=== PATIENT | male | born 1970 | race Caucasian/White ===

== ENCOUNTER 2019-11-25 20:48 | Inpatient (IN) ==
[2019-11-25] MEDS ORDERED: M.V.I.-12 10 ML, FOLIC ACID 1 MG, MAGNESIUM SULFATE 1 GM, THIAMINE 100 MG in NS 1,000 ML IV ONE (21:17)
[2019-11-25] MEDS ORDERED: ATIVAN IV ONE ×3 (21:17→23:34)
[2019-11-25] MEDS ORDERED: HUMULIN R (PARKWAY) IV ONE (21:25)
[2019-11-25] MEDS ORDERED: NS 1,000 ML IV ONE ×3 (21:27→22:59)
[2019-11-25] MEDS ORDERED: FOLIC ACID ONE (21:38)
[2019-11-25] MEDS ORDERED: M.V.I.-12 ONE (21:38)
[2019-11-25] MEDS ORDERED: THIAMINE ONE (21:38)
[2019-11-25] MEDS ORDERED: MAGNESIUM SULFATE ONE (21:38)
[2019-11-25 21:45] LABS: BE -11.7 mmoll (-3.0-3.0); BLOOD TYPE ARTERIAL; HCO3-(ACT) 15.6 mmoll (20.0-26.0); METHB 0.9 % (0.0-1.5); O2(CT) 22.3 mL/dL (15.0-23.0); O2HB 93.1 % (95.0-99.0); PCO2(98.6) 20 mmHg (35-45); PO2(98.6) 104 mmHg (60-100); SAMPLE BLOOD; SAO2 98.1 % (95.0-100.0); pH(98.6) 7.35 (7.35-7.45)
--- NOTE | 2019-11-25 21:46 | PROVIDER DOCUMENTATION ---
This chart was entered by Sammi Barrientos Scribe, acting as scribe for Narinder Pena MD. HPI-General Adult - General Chief Complaint: DKA ALERT Stated Complaint: ALCOHOL WITHDRAWAL/BLOOD SUGAR Time Seen by Provider: 11/25/19 21:17 Source: patient Allergies/Adverse Reactions: Patient Allergies Allergy/AdvReac Type Severity Reaction Status Date / Time No Known Allergies Allergy Verified 11/25/19 22:34 Home Medications: Home Medication List Medication Instructions Recorded Confirmed Last Taken Type Metformin E.r. [Glucophage Xr] 1,000 mg PO BID 11/25/19 11/25/19 Unknown History PRAVAstatin [Pravachol] 1 tab PO DIRECTED 11/25/19 11/25/19 Unknown History - History of Present Illness -Gen Adult Nature of Presenting Problems: pt is a 49 yr old male presenting with complaint of elevated blood glucose, polydypsea, and rapid pulse. pt admits he has been drinking 1/5 vodka daily for many yrs, today he has had 1 25oz 4 Cornucopia this AM and nothing since. pt also reports hx of diabetes but he does not check BGL or take insulin as he should. pt denies any chest pain,fever,productive cough, or shortness of breath Review of Systems - Adult - REVIEW OF SYSTEMS - ADULT Constitutional: reports: see HPI, fatique. denies: chills, fever Eyes: reports: no symptoms reported Ears, Nose, Mouth & Throat: reports: see HPI, other (dry mouth) Cardiovascular: denies: chest pain, syncope Respiratory: denies: cough, shortness of breath Gastrointestinal: reports: nausea. denies: abdominal pain, diarrhea, vomiting Genitourinary: reports: no symptoms reported. denies: dysuria Musculoskeletal: reports: muscle aches, muscle weakness. denies: back pain, joint pain Integumentary: reports: no symptoms reported. denies: rash Neurological: denies: dizziness/vertigo, headache/migraines, syncope Psychiatric: reports: alcohol/drug dependence Endocrine: reports: see HPI, increased thirst, polyuria Hematologic/Lymphatic: reports: no symptoms reported Allergic/Immunologic: reports: no symptoms reported All Other Systems: Reviewed and Negative Past History - Adult - PAST MEDICAL HISTORY-ADULT Review of Records: reports: Old Records Reviewed, Nursing Assessment Review, Medications Reviewed, Social history reviewed & non-contributory. Major Childhood Illnesses: reports: denies history Cardiovascular: reports: HTN, hyperlipidemia Respiratory: reports: denies history Gastrointestinal: reports: denies history Obstetrical/Gynecological: reports: denies history Genitourinary: reports: denies history Musculoskeletal: reports: denies history Neurological: reports: denies history Psychiatric: reports: other (alcohol/drug addiction) Endocrine/Immune: reports: Diabetes Other Conditions: reports: denies history - PRIOR SURGERIES/PROCEDURES Surgical/Procedure History: reports: none - PRIOR HOSPITALIZATIONS Prior Hospitalizations: reports: for similar symptoms - IMMUNIZATION STATUS Childhood Immunizations: See Nurse Assessment Flu Vaccine: See Nurse Assessment - FAMILY HISTORY Family History: reviewed, not pertinent - SOCIAL HISTORY Smoking: cigarettes Provider spent 3-5 mins advising pt. on dangers of tobacco.: Discussed manners to quit use, and f/u contacts for add'l counseling. Substance Use: alcohol Alcohol Use Frequency: every day Living Situation: alone Physical Exam-General - PHYSICAL EXAM-ADULT Initial Vital Signs Reviewed: Yes - CONSTITUTIONAL General Appearance: alert, no apparent distress - EYES Eyes: PERRL/EOMI - HEAD, EARS, NOSE, MOUTH & THROAT HENMT: normocephalic/atraumatic, other (dry mucous membranes) - NECK Neck: non-tender, full range of motion, supple - RESPIRATORY Respiratory: chest non-tender, lungs clear, no respiratory distress, no accessory muscle use - CARDIOVASCULAR Cardiovascular: normal peripheral pulses, tachycardia - GASTROINTESTINAL (ABDOMEN) Abdominal Exam: normal bowel sounds, non tender, soft - LYMPHATIC Lymphatic: no adenopathy - MUSCULOSKELETAL Back Exam: normal inspection, no CVA tenderness, no vertebral tenderness Extremity: normal range of motion, non-tender, normal gait, normal inspection - SKIN Integumentary: warm/dry, other (decreased skin turgor) - NEUROLOGIC Neurologic: grossly normal, no motor/sensory deficits - PSYCHIATRIC Psych/Mental Status: oriented x 3, anxious Progress - PLAN OF CARE/RESULTS Progress/Plan/Lab Results: Vital Signs - 8 hr 11/25/19 21:01 Temperature 98.1 F Pulse Rate 142 H Respiratory Rate 19 Blood Pressure 132/95 O2 Sat by Pulse Oximetry 97 Laboratory Results - last 24 hr 11/25/19 21:02 POC Glucose 458 H Orders Category Date Time Status NEWS Score 2-4:Order NEWS Lactate Series NOW Care 04/06/20 21:08 Active LACTATE, PLASMA [CHEM] Q3H Lab 11/25/19 21:15 Uncollected LACTATE, PLASMA [CHEM] Q3H Lab 11/26/19 00:15 Uncollected LACTATE, PLASMA [CHEM] Q3H Lab 11/26/19 03:15 Uncollected Lorazepam [Ativan] Med 11/25/19 21:17 Discontinued 2 mg IV NOW ONE Mvi [M.v.i.-12] 10 ml Med 11/25/19 21:17 Active Folic Acid 1 mg Magnesium Sulfate 1 gm Thiamine 100 mg 0.9% Sodium Chloride Inj [Ns] 1,000 ml IV NOW patient has elevated lactic acid due to underlying hypovolemia and alcoholism which causes elevated lacate. patient does not have clinical findings c/w sepsis. Result Diagrams: 11/25/19 21:25 11/25/19 21:25 - CONSULTS/PCP/HOSPITALIST Notification #1 *Consult/PCP/Hospitalist*: Dr. Ware, hospitalist Time Discussed: 22:15 Reason/Comments: no insulin drip, use sliding scale Consult Disposition: Admit Departure - Departure Date of Disposition Decision: 11/25/19 Time of Disposition Decision: 22:49 DIAGNOSIS: Alcohol abuse, Dehydration Uncontrolled diabetes mellitus Qualifiers: Diabetes mellitus type: type 2 Glycemic state: with hyperglycemia Qualified Code(s): E11.65 - Type 2 diabetes mellitus with hyperglycemia Disposition: ADMITTED INPATIENT 09 Certified Medical Emergency: Emergent Condition: Stable Referrals and Follow-Ups: None,PCP [Primary Care Provider] - - Critical Care Note This patient required my direct & personal management of CC.: Yes Attestation - Physician/ ALEX Attestation Patient care was provided by Advanced Practice Provider:: No The physician spent face to face time with patient:: Yes Advanced Practice Provider documentation review:: Supervising physician onsite and consulted in the evaluation and care of this patient. The physician did have a face to face encounter with the patient. This chart was documented by the indicated scribe, (Sammi Barrientos Scribe) and accurately reflects the services I performed and decisions made by me, Narinder Pena MD, as attested by the provider's signature.
[2019-11-25 21:48] LABS: BASO# 0.02 X1000 (0.0-0.2); BASO% 0.1 % (0.0-0.8); EOS# 0.01 X1000 (0.0-0.7); EOS% 0.1 % (0.0-10.0); HEMATOCRIT 45.2 % (42.0-52.0); HEMOGLOBIN 16.5 g/dL (14.0-18.0); IMM GRAN# 0.02 X1000 (0.0-0.04); IMM GRAN% 0.1 % (0.0-0.5); LYMPH# 1.37 X1000 (1.2-3.4); MCH 34.2 PG (27-31); MCHC 36.5 g/dL (33-37); MCV 93.6 FL (81-99); MONO# 0.96 X1000 (0.11-0.59); MPV 10.1 FL (7.4-10.4); NEUT# 11.28 X1000 (1.4-6.5); NEUT% 82.7 % (42.2-75.2); PLT 219 X1000 (130-400); RBC 4.83 XMIL (4.7-6.1); WBC 13.66 X1000 (4.8-10.8)
[2019-11-25 21:48] LABS: ALLEN TEST NO; MODALITY ROOM AIR
[2019-11-25 22:04] LABS: UR AMPHETAMINES QUAL NONE DETECTED (NONE DETECT); UR BARBITUATES QUAL NONE DETECTED (NONE DETECT); UR BENZODIAZEPIN QUAL PRESUMPTIVE POSITIVE (NONE DETECT); UR CANNABINOIDS QUAL NONE DETECTED (NONE DETECT); UR COCAINE QUAL NONE DETECTED (NONE DETECT); UR METHADONE QUAL NONE DETECTED (NONE DETECT); UR METHAMPHETAMINE QUAL NONE DETECTED (NONE DETECT); UR OPIATES QUAL NONE DETECTED (NONE DETECT); UR OXYCODONE QUAL NONE DETECTED (NONE DETECT); UR PCP QUAL NONE DETECTED (NONE DETECT); UR PROPOXYPHENE QUAL NONE DETECTED (NONE DETECT); UR TCA QUAL PRESUMPTIVE POSITIVE (NONE DETECT)
[2019-11-25 22:05] LABS: ESTIMATED GFR > 60
[2019-11-25 22:11] LABS: AGAP 32; ALKALINE PHOSPHATASE 89 U/L (32-122); BUN 18 mg/dL (8-22); CALCIUM 8.7 mg/dL (8.8-10.2); CHLORIDE 82 mmol/L (98-107); COSMO 275; CREATININE 0.9 mg/dL (0.7-1.2); GOT 94 U/L (10-34); GPT 66 U/L (10-44); POTASSIUM 4.6 mmol/L (3.5-5.1); SODIUM 126 mmol/L (136-145); TCO2 12 mmol/L (25-35); TOTAL PROTEIN 6.4 g/dL (6.3-8.3)
[2019-11-25 22:13] LABS: GLUCOSE 456 mg/dL (70-104)
[2019-11-25] MEDS ORDERED: ZOFRAN IV PRN (22:59)
[2019-11-25] MEDS: HUMULIN R (PARKWAY) SUBQ SCH (23:15)
[2019-11-26 00:11] LABS: MAGNESIUM 1.7 mg/dL (1.5-2.7); PHOSPHORUS 3.6 mg/dL (2.7-4.5)
[2019-11-26 00:14] LABS: ESTIMATED GFR > 60
[2019-11-26 00:18] LABS: AGAP 27; ALBUMIN 3.1 g/dL (3.5-5.0); ALKALINE PHOSPHATASE 67 U/L (32-122); BUN 15 mg/dL (8-22); CALCIUM 7.5 mg/dL (8.8-10.2); CHLORIDE 90 mmol/L (98-107); COSMO 273; CREATININE 0.6 mg/dL (0.7-1.2); GLUCOSE 345 mg/dL (70-104); GOT 69 U/L (10-34); GPT 50 U/L (10-44); PHOSPHORUS 2.8 mg/dL (2.7-4.5); POTASSIUM 4.9 mmol/L (3.5-5.1); SODIUM 129 mmol/L (136-145); TCO2 12 mmol/L (25-35); TOTAL PROTEIN 4.9 g/dL (6.3-8.3)
[2019-11-26] MEDS: HUMULIN R (PARKWAY) SUBQ SCH ×3 (05:11→19:52)
[2019-11-26 06:48] LABS: BASO# 0.03 X1000 (0.0-0.2); BASO% 0.3 % (0.0-0.8); EOS# 0.16 X1000 (0.0-0.7); EOS% 1.7 % (0.0-10.0); HEMATOCRIT 38.2 % (42.0-52.0); HEMOGLOBIN 13.7 g/dL (14.0-18.0); IMM GRAN# 0.01 X1000 (0.0-0.04); IMM GRAN% 0.1 % (0.0-0.5); LYMPH# 2.12 X1000 (1.2-3.4); LYMPH% 22.8 % (20.5-51.1); MCH 33.6 PG (27-31); MCHC 35.9 g/dL (33-37); MCV 93.6 FL (81-99); MONO# 0.67 X1000 (0.11-0.59); MONO% 7.2 % (1.7-9.3); MPV 9.6 FL (7.4-10.4); NEUT# 6.32 X1000 (1.4-6.5); NEUT% 67.9 % (42.2-75.2); PLT 178 X1000 (130-400); RBC 4.08 XMIL (4.7-6.1); RDW 11.8 % (11.5-14.5); WBC 9.31 X1000 (4.8-10.8)
[2019-11-26] MEDS ORDERED: LIBRIUM PO PRN (12:25)
[2019-11-26 12:26] LABS: AGAP 17; BUN 13 mg/dL (8-22); CALCIUM 7.7 mg/dL (8.8-10.2); CHLORIDE 95 mmol/L (98-107); COSMO 271; CREATININE 0.7 mg/dL (0.7-1.2); ESTIMATED GFR > 60; GLUCOSE 152 mg/dL (70-104); POTASSIUM 4.3 mmol/L (3.5-5.1); SODIUM 134 mmol/L (136-145); TCO2 22 mmol/L (25-35)
[2019-11-26] MEDS ORDERED: LIBRIUM PO SCH (12:30)
[2019-11-26] MEDS ORDERED: LEVEMIR INSULIN *HA SUBQ SCH (12:30)
--- NOTE | 2019-11-26 12:51 | HISTORY AND PHYSICAL ---
CHIEF COMPLAINT: Withdrawal symptoms, also hyperglycemia. HISTORY OF PRESENT ILLNESS: This is a 49-year-old diabetic who has been on an alcohol binge. He has a history of alcohol use, had been clean for, I think, at least several months, and apparently started drinking again, about a fifth for the last 10 to 12 days. His last drink was yesterday morning. He started having withdrawal symptoms, which I think was not hallucinations, but tremors and things of that nature. He apparently had one 25-ounce Four Ernie, which I am assuming is an alcoholic drink, I am not entirely sure, but he has not been checking his sugars for the last several days. Reportedly, he has had polydipsia, elevated blood sugar at home, rapid pulse. Now, he reports he is on Levemir and metformin. [facility] [place], but he has not been taking the medications for at least 48 hours. He also describes polyuria, but no nausea, vomiting, no diarrhea, no dizziness. He had to be given several doses of Ativan last night, but he is not tremulous now. His blood alcohol level was 94. The patient was admitted for hyperglycemia because I think his initial blood sugar was 456, although he did have evidence of DKA because he was acidotic. They never did check an acetone on him. His pH was normal at 7.35, but pCO2 initially was 12, and his gap was 32, but he did have alcohol in his system, so difficult, and a lactate acidosis. PAST MEDICAL HISTORY: 1. Type 2 diabetes, again insulin-dependent. 2. Hypertension. 3. Dyslipidemia. PAST SURGICAL HISTORY: Denies. FAMILY HISTORY: Father is of non-Hodgkin's lymphoma, and several members were positive for lung cancer, some of them smokers, some of them not. SOCIAL HISTORY: He drinks up to about a fifth a day, has had issues with that in the past. ALLERGIES: No known drug allergies. MEDICATIONS: Only listed is metformin 1 gram b.i.d. and Pravachol 10, but he also reports he is on Levemir 50 units a day. REVIEW OF SYSTEMS: No weight loss. No appetite change. Cardiovascular: No chest pain or palpitations. Pulmonary: No shortness of breath or cough. GI: No nausea, vomiting, diarrhea. No fevers, chills, night sweats. No COVID symptoms. PHYSICAL EXAMINATION: VITAL SIGNS: Blood pressure is 137/82, heart rate of 88, respiratory rate 18, temperature 98.2 degrees, saturating 98% on room air. CARDIOVASCULAR: Regular rate and rhythm. PULMONARY: Bilateral breath sounds. Clear to auscultation. GI: Soft, nontender, nondistended. Bowel sounds are positive. NEUROLOGIC: Nonfocal. No tremors. He is alert and oriented x3. MUSCULOSKELETAL: Strength 4/5 in all 4 extremities. SKIN: He did have some pallor in his lower extremities, some chronic venous changes, trace edema. EYES: Pupils equal, round, reactive to light. Extraocular movements were intact. ENT: He had moist mucous membranes. NECK: Supple. CARDIOVASCULAR: As described. LABORATORY DATA: Sodium is 126, sugar 456. His repeat labs, his bicarb was still 12, and his repeat sugar is 345. His gap was 27. I do not know, they just did not treat him, but will see what his numbers look like this morning. His lactate was 7, although there is no clear source of infection, although he never really had any imaging done. His lungs sound clear though. ASSESSMENT: 1. This is a 49-year-old male, presenting with hyperglycemia related to not eating. He came in for evaluation as such. He has been controlled. His sugar is down to 124. Will repeat his labs because he had evidence of ketoacidosis or at least lactic acidosis, metabolic acidosis, so will repeat his labs and see how his numbers look. Sodium is improved. I am going to resume his metformin and his Levemir, and will continue to follow. We probably also need to make sure the lactic acidosis has improved because he did have a lactic acidosis on metformin. 2. Alcohol withdrawal syndrome. We will initiate Librium, start banana bag, and follow. 3. Disposition. If his blood sugars stabilize and he seems asymptomatic, we will try to discharge him. Also check an A1c. We will follow closely. This is a service admission. cc: Casa Taylor MD
--- NOTE | 2019-11-26 12:52 | Diag Imaging Result Doc PS360 ---
CHEST-2 VIEWS - 11/26/2019 INDICATION: hypoxia COMPARISON: None FINDINGS: The lungs are normally expanded and clear. Heart size and mediastinal contours are normal. No pneumothorax or pleural effusion. IMPRESSION: Negative exam. Electronically signed by Marco A Kapoor 11/26/2019 12:50 PM
[2019-11-26] MEDS ORDERED: PEPCID PO ONE (16:07)
[2019-11-26 18:58] VITALS: BP 111/76
[2019-11-26] MEDS ORDERED: GLUCOPHAGE XR PO SCH (21:00)
[2019-11-26] MEDS ORDERED: PEPCID PO SCH (21:00)
[2019-11-26] MEDS ORDERED: PRAVACHOL PO SCH (21:00)
[2019-11-26] MEDS ORDERED: M.V.I.-12 10 ML, FOLIC ACID 1 MG, MAGNESIUM SULFATE 1 GM, THIAMINE 100 MG in NS 1,000 ML IV SCH (21:00)
--- NOTE | 2019-11-28 19:35 | DISCHARGE SUMMARY ---
ADMISSION DATE: 11/25/2019 DISCHARGE DATE: 11/26/2019 DISCHARGE DIAGNOSIS: 1. Hyperglycemia due to noncompliance with insulin but I would say he met criteria for early diabetic ketoacidosis, although he did not really have acidosis. He just had anion gap. His pH was stable. 2. Alcohol withdrawal syndrome. HOSPITAL COURSE: This is a 49-year-old male who came in for treatment. He did end up having 2 positive blood cultures but 1 was positive for Staph hominis and the other was positive for diphtheroids, so I felt most likely this was a contaminant. He did have a little bit of white count when he came in. His blood sugars stabilized. He stabilized. He was felt close to stable for discharge, but he left AMA on the . He was encouraged to come back with a positive blood cultures, but he had left AMA. Again, I feel likely this is a contaminant since they are not consistent blood cultures. He was not given medications prior to discharge and he left on his own accord. cc: Casa Taylor MD
== END 2019-11-26 20:22 | disposition left against medical advice (07) | DRG 638 ==
LOC: P.ED 20:48 → P.MEDSURG 23:38 → SUATTDRO 23:38
PROVIDERS: ATTEND Internal Medicine